=== PATIENT | male | born 1965 | race Two or more races ===

== ENCOUNTER 2017-02-04 15:48 | Inpatient (IN) | payer BC ==
--- NOTE | ~2017-02-04 | DS ---
Discharge Summary [facility] [address] [place]. [address] NAME: DINO EASON : 65 STATUS : DIS IN PAT#: [id number] AGE: 51 ADM/REG DATE : 02/04/17 MR#: [id number] REPORT SERV DATE: 02/19/17 DICTATED BY: CHAN RAE DATE: 02/19/17 REPORT STATUS : Draft TRANSCRIBED BY: TRI DATE: 02/19/17 Data Collection from hospitalization DISCHARGE DIAGNOSES: 1. ST-elevation myocardial infarction. 2. Chest pain. 3. Tobacco use. 4. Severe multivessel coronary artery disease. CONSULTATIONS: Dr. Drake Mejia. PROCEDURES: 1. Cardiac catheterization and percutaneous coronary intervention on 02/04/2017. 2. Emergent coronary artery bypass grafting x3b with VALDIVIA to the LAD, saphenous vein graft to the posterior descending artery, saphenous vein graft to the obtuse marginal, transesophageal echocardiogram, VasoView vein harvesting right lower extremity (left leg explored, but vein not removed) on 02/04/2017. DISCHARGE MEDICATIONS: Vitamin C 1000 mg twice a day, aspirin 81 mg daily, Lipitor 40 mg at bedtime, Pepcid 20 mg twice a day, [place] 10/325 one tablet every four hours as needed, Prinivil 2.5 mg daily, Lopressor 12.5 mg twice a day, Orazinc 220 mg daily. CONDITION AT DISCHARGE: Stable. DISPOSITION: The patient was discharged home to be followed by home health care on an 1800- calorie cardiac/diabetic diet with activities as instructed. He would follow up with me on 02/27/2017, he would follow up with Dr. Zeus Perez on 02/25/2017, he would follow up with Dr. Kelvin Wren on 02/13/2017. HOSPITAL COURSE: This is a 51-year-old man, who was transferred from [facility] with a diagnosis of acute coronary syndrome. He has had discomfort for two to three hours and his EKG reportedly demonstrated anterior ST-segment depression. He was sent to [facility] with no EKG from [facility]. On arrival he was seen by Dr. Drake Mejia. He had 1/10 discomfort. He said he was feeling much better. He had no orthopnea or PND. He had no palpitations and no chest discomfort prior to the day of this admission, it was felt that he would need to undergo a cardiac catheterization, and coronary angioplasty, with stent placement. He agreed to proceed. He was admitted to the hospital for further evaluation and treatment. Upon admission, he was taken to the cardiac lift slab operator where he underwent the above-mentioned procedure. He tolerated this well and there were no complications. The cardiac catheterization showed multivessel coronary artery disease. He said he had ongoing chest pain despite medical therapy. It was felt that the patient would need to undergo coronary artery bypass grafting. He was taken to the operating room where he underwent the above- mentioned procedure. He tolerated this well and there were no complications. On postop day #1, his lungs were clear. Left pleural and one mediastinal chest tubes were removed. He was in a normal sinus rhythm. He appeared comfortable. He had no edema. On 02/06/2017, he did have some mild discomfort. Chest tubes and pacing wires were removed. He was Discharge Summary [address] [address] NAME: DINO EASON : 65 STATUS : DIS IN PAT#: [id number] AGE: 51 ADM/REG DATE : 02/04/17 MR#: [id number] REPORT SERV DATE: 02/19/17 DICTATED BY: CHAN RAE DATE: 02/19/17 REPORT STATUS : Draft TRANSCRIBED BY: TRI DATE: 02/19/17 encouraged to mobilize. A Dulcolax suppository was given. We encouraged him to mobilize. He continued to do well and began to feel better. Discharge planning was performed. He was in a normal sinus rhythm. He was mobilizing in the hidalgo. On 02/08/2017, he had no chest pain or shortness of breath. His incisions were clean, dry, and intact. Discharge instructions were given. Due to his improved and stable condition, he was discharged home to be followed by home health care with the above-stated instructions. Information collected by: Diamond Zambrano I submit the above information as my discharge summary. BLANK/TRI Chan Rae M.D. / [id number] CC: Drake Mejia M.D.
--- NOTE | ~2017-02-04 | CN ---
Consultation Report [facility] [address] [place]. [address] NAME: DINO EASON : 65 STATUS : ADM IN [facility]#: [id number] AGE: 51 ADM/REG DATE : 02/04/17 MR#: [id number] REPORT SERV DATE: 02/04/17 DICTATED BY: CHAN RAE DATE: 02/04/17 REPORT STATUS : Draft TRANSCRIBED BY: MODL DATE: 02/04/17 CONSULT DATE OF CONSULTATION: 02/04/2017 REASON FOR REFERRAL: Evaluation for emergency coronary artery bypass grafting. HISTORY OF PRESENT ILLNESS: The patient is a 51-year-old Portuguese gentleman, who was transferred from [facility] with a diagnosis of acute coronary syndrome. He states his chest discomfort lasted for two to three hours prior to presentation. An EKG there demonstrated anterior ST-segment depressions and he was sent to [facility] for intervention. Dr. Drake Mejia took the patient for cardiac catheterization, which shows multivessel coronary artery disease. He states ongoing chest pain despite medical therapy, and therefore, we are consulted for emergency bypass surgery. PAST MEDICAL HISTORY: Unknown, as the patient does not speak adequate Algerian. He does have ongoing tobacco use. HOME MEDICATIONS: None. FAMILY HISTORY: No premature coronary artery disease. REVIEW OF SYSTEMS: Unknown due to the patient's language barrier. PHYSICAL EXAMINATION: VITAL SIGNS: His blood pressure is 130/70, heart rate is 70, he is afebrile, and vital signs are stable. HEENT: Normocephalic, atraumatic with no scleral icterus. NECK: Supple with no thyromegaly. CHEST: Clear to auscultation bilaterally. HEART: Regular rate and rhythm with no murmurs, rubs, or gallops. ABDOMEN: Soft, nontender, nondistended. EXTREMITIES: Warm with 1+ distal pulses. No clubbing, cyanosis, or edema. MUSCULOSKELETAL: Grossly intact. NEUROLOGIC: Grossly intact. LABORATORY DATA: Within normal limits. STUDIES: I reviewed his cardiac catheterization and agree with three-vessel coronary artery disease not amenable to percutaneous intervention. PLAN: He will be brought to the operating room for emergency multivessel coronary artery bypass grafting. Consultation Report [facility] [address] [place]. [address] NAME: DINO EASON : 65 STATUS : ADM IN PAT#: [id number] AGE: 51 ADM/REG DATE : 02/04/17 MR#: [id number] REPORT SERV DATE: 02/04/17 DICTATED BY: CHAN RAE DATE: 02/04/17 REPORT STATUS : Draft TRANSCRIBED BY: MODL DATE: 02/04/17 CCR/MOSESL Chan Rae M.D. / [id number] CC: Drake Mejia M.D.
--- NOTE | ~2017-02-04 | OP ---
Record Of Operation [facility] [address] [place]. [address] NAME: DINO EASON : 65 STATUS : ADM IN PAT#: [id number] AGE: 51 ADM/REG DATE : 02/04/17 MR#: [id number] REPORT SERV DATE: 02/05/17 DICTATED BY: CHAN RAE DATE: 02/04/17 REPORT STATUS : Draft TRANSCRIBED BY: MODL DATE: 02/04/17 DATE OF PROCEDURE: 02/04/2017 PREOPERATIVE DIAGNOSES: ST-elevation myocardial infarction, ongoing chest pain. POSTOPERATIVE DIAGNOSES: ST-elevation myocardial infarction, ongoing chest pain. PROCEDURE: 1. Emergency coronary artery bypass grafting x3 with a VALDIVIA to the LAD, saphenous vein graft to the posterior descending artery, saphenous vein graft to the obtuse marginal. 2. Transesophageal echocardiogram. 3. VasoView vein harvesting, right lower extremity (left leg explored but vein not removed). SURGEON: Chan Rae M.D. DIE FILER: Lukas Cedillo. ANESTHESIOLOGIST: Varinder Davis M.D. CARDIOPULMONARY BYPASS TIME: 72 minutes. CROSS-CLAMP TIME: 58 minutes. FINDINGS: Small but usable vein, second obtuse marginal was too small to graft, other targets good, normal ejection fraction, no valvular abnormalities. Wires are ventricular x2. Tubes were left pleural x1 and mediastinal x2. COMPLICATIONS: None. CONDITION: Fair to the ICU on no drips and normal sinus rhythm. PROCEDURE IN DETAIL: After cardiac catheterization, the patient was brought emergently to the operating room and lined by Anesthesia. He was prepped and draped in the normal fashion. A transesophageal echocardiogram showed normal ejection fraction with no valvular abnormalities. VasoView vein harvesting commenced on the right lower extremity by making an incision just medial to the right knee and dissection carried proximally and distally. All tributaries were coagulated. Counter incisions were made and the vein was removed. All tributaries were then clipped. The vein below the knee was small caliber, so the left leg was harvested, but not removed as it was smaller than the right. Median sternotomy was performed in the usual fashion. The left bev-sternum was elevated using a Rultract retractor and the left pleura taken down using Bovie electrocautery. The left internal mammary artery was harvested from the chest wall using Bovie electrocautery. All tributaries were clipped. After systemic heparinization, the distal limb was severed from the chest wall and good blood flow was noted. Papaverine was soaked on the vessel wall. Pericardium was opened in the midline and tacked to the skin using multiple silk sutures. Record Of Operation [facility] [address] [place]. [address] NAME: DINO EASON : 65 STATUS : ADM IN PAT#: [id number] AGE: 51 ADM/REG DATE : 02/04/17 MR#: [id number] REPORT SERV DATE: 02/05/17 DICTATED BY: CHAN RAE DATE: 02/04/17 REPORT STATUS : Draft TRANSCRIBED BY: TRI DATE: 02/04/17 Aortic cannulation was performed in the proximal aortic arch and venous cannulation was performed in the right atrial appendage. The patient was placed on cardiopulmonary bypass and cooled to approximately 35 degrees Celsius. A cardioplegia/vent cannula was placed in the ascending aorta. Cross-clamp was placed across the aorta and 800 mL of cold blood cardioplegia was given for cardiac standstill. The base of the heart was elevated and the posterior descending artery identified. This was dissected using a Castro blade and extended using Zamudio scissors. Saphenous vein was placed in a reverse manner, a lim created, and an end-to-side anastomosis was performed using a running 7-0 Deklene suture. Heart was filled and the vein sized to the ascending aorta around the right side of the heart. Antegrade cardioplegia was given. The lateral wall of the heart was inspected. The second obtuse marginal artery was too small to graft. The first obtuse marginal artery was then opened using a Castro blade and extended using Zamudio scissors. Remaining portion of the saphenous vein was placed in a reverse manner, a lim created, and an end-to-side anastomosis performed using a running 7-0 Deklene suture. Heart was filled and the vein sized to the ascending aorta around the left side of the heart. Antegrade cardioplegia was given. Mid to distal portion of the LAD artery was then dissected using a Castro blade and extended using Zamudio scissors. Distal end of the mammary artery was fashioned to a lim and end-to-side anastomosis was performed using a running 8-0 Deklene suture. Brennendog was released and excellent blood flow was noted distally. Fascia of the mammary was tacked down to the LV wall using two 6-0 Prolene sutures. Antegrade cardioplegia was given. An 11- blade knife was used to make two separate stab incisions on the ascending aorta and a 4.5 mm punch used to create two separate aortotomies. Two separate proximal anastomoses were performed using a running 6-0 Prolene suture for each. Heart was then filled and de-aired through the root vent. Cross-clamp was removed. Ventricular pacing wires were placed on the right ventricular surface. A left pleural and posterior pericardial chest tube were placed. After the patient achieved normothermia, he was weaned from cardiopulmonary bypass without difficulty. Doppler flow analysis was performed on all three tributaries and all three had excellent flow. Protamine was administered. The patient was decannulated. After surgical hemostasis was achieved, an anterior pericardial chest tube was placed and the sternum reapproximated using the sternal cable system. The skin, subcutaneous, and subcuticular tissue were closed over the sternum using running Vicryl and Monocryl sutures. Overall, the patient tolerated the procedure well and was transported to the ICU in fair condition on no drips in normal sinus rhythm. CCR/MODL Chan Rae M.D. / [id number] CC: Drake Mejia M.D. [facility]
--- NOTE | ~2017-02-04 | PRECARD ---
[facility]&P [facility] [address] [place]. [address] NAME: DINO EASON : 65 STATUS : ADM IN [facility]#: [id number] AGE: 51 ADM/REG DATE : 02/04/17 MR#: [id number] REPORT SERV DATE: 02/04/17 DICTATED BY: ROSALINO MEJIA DATE: 02/04/17 REPORT STATUS : Draft TRANSCRIBED BY: MODIglesia DATE: 02/04/17 DATE OF ADMISSION: 02/04/2017 HISTORY OF PRESENT ILLNESS: Mr. Dino Eason is a 51-year-old gentleman, transferred from [facility] with a diagnosis of acute coronary syndrome. Mr. Eason had chest discomfort for perhaps two to three hours. His EKG reportedly demonstrated anterior ST-segment depression. That EKG is not available. He was sent to [facility] with no EKG from [facility]. On arrival, he has 1/10 discomfort. He feels much better. He has no orthopnea or PND. No palpitations. No chest discomfort prior to today. PAST MEDICAL HISTORY: Ongoing tobacco use. MEDICINES: None. FAMILY HISTORY: No premature coronary artery disease. REVIEW OF SYSTEMS: A complete review of systems obtained, pertinent negative and remarkable, except as noted above and below, all systems addressed. PHYSICAL EXAMINATION: VITAL SIGNS: Blood pressure 130/70, heart rate about 70. LABORATORY DATA: White count 9.4, hematocrit is 43.1, platelet count is 240,000. BUN is 9, creatinine 0.7, potassium 3.5. ASSESSMENT: Mr. Eason is a 51-year-old gentleman, transferred from [facility] to [facility] by ambulance with reported acute coronary syndrome. We do not have the EKG that prompted this transfer, we are trying to obtain that now. We have asked the [facility] to fax it to us. I did talk to emergency room physician. We will proceed with cardiac catheterization and possible angioplasty. I discussed the risks, benefits, and alternatives of catheterization, coronary angioplasty with stent placement with Mr. Eason. He understands and agrees to proceed. THEODORA/TRI Rosalino Mejia M.D. / [id number] CC: Rosalino Mejia M.D. [facility] [address] [address] NAME: DINO EASON : 65 STATUS : ADM IN PAT#: [id number] AGE: 51 ADM/REG DATE : 02/04/17 MR#: [id number] REPORT SERV DATE: 02/04/17 DICTATED BY: ROSALINO MEJIA DATE: 02/04/17 REPORT STATUS : Draft TRANSCRIBED BY: TRI DATE: 02/04/17 UNKNOWN
[2017-02-04 18:18] LABS: BUN (BLOOD UREA NITROGEN) 8 MG/DL (6-23); CHLORIDE, SERUM 108 MMOL/L (96-112); CO2 (CARBON DIOXIDE) 24 MMOL/L (24-34); CREATININE 0.77 MG/DL (0.70-1.30); GFR AFRICAN AMERICAN 122 ML/MIN (>=60); GFR NON AFRICAN AMERICAN 105 ML/MIN (>=60); GLUCOSE, SERUM 92 MG/DL (60-99); POTASSIUM, SERUM 4.1 MMOL/L (3.5-5.3); SODIUM, SERUM 140 MMOL/L (135-148)
[2017-02-04 18:20] LABS: BASOPHILS 0.1 %; BASOPHILS ABSOLUTE 0.01 10/3/uL (0.0-0.16); EOSINOPHILS 0.4 %; EOSINOPHILS ABSOLUTE 0.04 10/3/uL (0.0-0.53); HEMATOCRIT 39.6 % (40.0-51.0); HEMOGLOBIN 13.5 g/dL (13.6-17.8); IMMATURE GRANULOCYTES 0.2 %; IMMATURE GRANULOCYTES ABSOLUTE 0.02 10/3/uL (0.0-0.11); LYMPHOCYTES 14.1 %; LYMPHOCYTES ABSOLUTE 1.38 10/3/uL (0.67-4.30); MEAN CORPUS HGB CONC 34.1 g/dL (32.0-36.0); MEAN CORPUSCULAR HEMOGLOB 31.4 pg (26.0-34.0); MEAN CORPUSCULAR VOLUME 92.1 fL (80-100); MEAN PLATELET VOLUME 9.5 fL (9.2-13.0); MONOCYTES ABSOLUTE 0.39 10/3/uL (0.21-1.20); NEUTROPHILS 81.2 %; NEUTROPHILS ABSOLUTE 7.98 10/3/uL (2.02-8.40); PLATELET COUNT 245 10/3/uL (150-400); RBC DISTRIBUTION WIDTH 13.8 % (12.0-16.0); WHITE BLOOD CELLS 9.8 10/3/uL (4.5-10.5)
[2017-02-04 18:23] LABS: MANUAL DIFF NO %
[2017-02-04 21:31] LABS: BE (BASE EXCESS) -2.1 MEQ/L (0 +/- 2.5); CARBOXYHEMOGLOBIN 0.1 % (0-3); HCO3 (ACTUAL BICARBONATE) 21.4 MEQ/L (23-27); HEMOBLOGIN CONTENT 11.2 G/DL (14-18); INSTRUMENT SERIAL # 11843; METHEMOGLOBIN 0.5 % (0-3); MODE SIMV; O2 CONTENT 16.8 VOL% (18-24); OPERATOR ID 13744; PCO2 (CO2 TENSION) 32 MMHG (35-45); PO2 (O2 TENSION) 458 MMHG (79-93); SAMPLE Arterial; TIDAL VOLUME 700 ML; pH 7.44 (7.37-7.43)
[2017-02-04 21:52] LABS: BASOPHILS 0.1 %; BASOPHILS ABSOLUTE 0.01 10/3/uL (0.0-0.16); EOSINOPHILS 1.1 %; EOSINOPHILS ABSOLUTE 0.14 10/3/uL (0.0-0.53); IMMATURE GRANULOCYTES 0.3 %; IMMATURE GRANULOCYTES ABSOLUTE 0.04 10/3/uL (0.0-0.11); LYMPHOCYTES 14.2 %; LYMPHOCYTES ABSOLUTE 1.74 10/3/uL (0.67-4.30); MEAN CORPUS HGB CONC 34.4 g/dL (32.0-36.0); MEAN CORPUSCULAR HEMOGLOB 31.6 pg (26.0-34.0); MEAN CORPUSCULAR VOLUME 91.8 fL (80-100); MEAN PLATELET VOLUME 8.7 fL (9.2-13.0); MONOCYTES 1.5 %; MONOCYTES ABSOLUTE 0.19 10/3/uL (0.21-1.20); NEUTROPHILS 82.8 %; NEUTROPHILS ABSOLUTE 10.17 10/3/uL (2.02-8.40); PLATELET COUNT 190 10/3/uL (150-400); RBC DISTRIBUTION WIDTH 13.7 % (12.0-16.0); WHITE BLOOD CELLS 12.3 10/3/uL (4.5-10.5)
[2017-02-04 21:53] LABS: HEMATOCRIT 30.2 % (40.0-51.0); HEMOGLOBIN 10.4 g/dL (13.6-17.8); MANUAL DIFF NO %; RED CELL COUNT 3.29 10/6/uL (4.7-6.1)
[2017-02-04 22:04] LABS: INTERNATIONAL NORMAL RATI 1.5 UNITS (-); PARTIAL THROMBO TIME 39.1 SEC (22.5-37.2); PROTIME (NOT ORD) 17.5 SEC (12.0-14.5)
[2017-02-04 22:07] LABS: BUN (BLOOD UREA NITROGEN) 7 MG/DL (6-23); CALCIUM, SERUM 8.5 MG/DL (8.5-10.4); CHLORIDE, SERUM 110 MMOL/L (96-112); CO2 (CARBON DIOXIDE) 24 MMOL/L (24-34); CREATININE 0.81 MG/DL (0.70-1.30); GFR AFRICAN AMERICAN 119 ML/MIN (>=60); GFR NON AFRICAN AMERICAN 103 ML/MIN (>=60); GLUCOSE, SERUM 110 MG/DL (60-99); POTASSIUM, SERUM 4.4 MMOL/L (3.5-5.3); SODIUM, SERUM 143 MMOL/L (135-148)
[2017-02-05 00:06] LABS: HEMATOCRIT 35.4 % (40.0-51.0); HEMOGLOBIN 12.2 g/dL (13.6-17.8)
[2017-02-05 00:20] LABS: POTASSIUM, SERUM 4.3 MMOL/L (3.5-5.3)
[2017-02-05 01:46] LABS: BE (BASE EXCESS) -2.7 MEQ/L (0 +/- 2.5); CARBOXYHEMOGLOBIN 0.1 % (0-3); DEVICE NC; HEMOBLOGIN CONTENT 12.5 G/DL (14-18); INSTRUMENT SERIAL # 11843; METHEMOGLOBIN 0.5 % (0-3); O2 CONTENT 17.3 VOL% (18-24); OPERATOR ID 13744; PCO2 (CO2 TENSION) 38 MMHG (35-45); PO2 (O2 TENSION) 133 MMHG (79-93); SAMPLE Arterial; pH 7.38 (7.37-7.43)
[2017-02-05 03:20] LABS: BASOPHILS 0.1 %; BASOPHILS ABSOLUTE 0.01 10/3/uL (0.0-0.16); EOSINOPHILS 0.4 %; EOSINOPHILS ABSOLUTE 0.06 10/3/uL (0.0-0.53); HEMATOCRIT 34.3 % (40.0-51.0); HEMOGLOBIN 11.5 g/dL (13.6-17.8); IMMATURE GRANULOCYTES 0.4 %; IMMATURE GRANULOCYTES ABSOLUTE 0.06 10/3/uL (0.0-0.11); LYMPHOCYTES 7.3 %; LYMPHOCYTES ABSOLUTE 1.08 10/3/uL (0.67-4.30); MEAN CORPUS HGB CONC 33.5 g/dL (32.0-36.0); MEAN CORPUSCULAR HEMOGLOB 31.3 pg (26.0-34.0); MEAN CORPUSCULAR VOLUME 93.2 fL (80-100); MEAN PLATELET VOLUME 9.1 fL (9.2-13.0); MONOCYTES 5.3 %; MONOCYTES ABSOLUTE 0.79 10/3/uL (0.21-1.20); NEUTROPHILS 86.5 %; NEUTROPHILS ABSOLUTE 12.85 10/3/uL (2.02-8.40); PLATELET COUNT 169 10/3/uL (150-400); RBC DISTRIBUTION WIDTH 13.7 % (12.0-16.0); RED CELL COUNT 3.68 10/6/uL (4.7-6.1); WHITE BLOOD CELLS 14.9 10/3/uL (4.5-10.5)
[2017-02-05 03:23] LABS: MANUAL DIFF NO %
[2017-02-05 03:33] LABS: BUN (BLOOD UREA NITROGEN) 8 MG/DL (6-23); CALCIUM, SERUM 7.6 MG/DL (8.5-10.4); CHLORIDE, SERUM 116 MMOL/L (96-112); CO2 (CARBON DIOXIDE) 24 MMOL/L (24-34); CREATININE 0.92 MG/DL (0.70-1.30); GFR AFRICAN AMERICAN 111 ML/MIN (>=60); GFR NON AFRICAN AMERICAN 96 ML/MIN (>=60); GLUCOSE, SERUM 88 MG/DL (60-99); POTASSIUM, SERUM 3.8 MMOL/L (3.5-5.3); SODIUM, SERUM 147 MMOL/L (135-148)
[2017-02-05] MEDS ORDERED: [UNRECOGNIZED DRUG - OTHER] PO (12:14)
[2017-02-05 16:20] LABS: HEMOGLOBIN 10.4 g/dL (13.6-17.8)
[2017-02-05 16:21] LABS: HEMATOCRIT 30.3 % (40.0-51.0)
[2017-02-05 16:30] LABS: POTASSIUM, SERUM 3.6 MMOL/L (3.5-5.3)
[2017-02-06 04:59] LABS: BASOPHILS 0 %; EOSINOPHILS 0.1 %; EOSINOPHILS ABSOLUTE 0.01 10/3/uL (0.0-0.53); HEMATOCRIT 30.2 % (40.0-51.0); HEMOGLOBIN 10.2 g/dL (13.6-17.8); IMMATURE GRANULOCYTES 0.2 %; IMMATURE GRANULOCYTES ABSOLUTE 0.02 10/3/uL (0.0-0.11); LYMPHOCYTES 12.8 %; LYMPHOCYTES ABSOLUTE 1.26 10/3/uL (0.67-4.30); MEAN CORPUS HGB CONC 33.8 g/dL (32.0-36.0); MEAN CORPUSCULAR HEMOGLOB 31.7 pg (26.0-34.0); MEAN CORPUSCULAR VOLUME 93.8 fL (80-100); MEAN PLATELET VOLUME 9.2 fL (9.2-13.0); MONOCYTES 8.1 %; MONOCYTES ABSOLUTE 0.79 10/3/uL (0.21-1.20); NEUTROPHILS 78.8 %; NEUTROPHILS ABSOLUTE 7.73 10/3/uL (2.02-8.40); PLATELET COUNT 151 10/3/uL (150-400); RBC DISTRIBUTION WIDTH 14.1 % (12.0-16.0); RED CELL COUNT 3.22 10/6/uL (4.7-6.1); WHITE BLOOD CELLS 9.8 10/3/uL (4.5-10.5)
[2017-02-06 05:00] LABS: MANUAL DIFF NO %
[2017-02-06 05:16] LABS: BUN (BLOOD UREA NITROGEN) 10 MG/DL (6-23); CALCIUM, SERUM 8.5 MG/DL (8.5-10.4); CHLORIDE, SERUM 111 MMOL/L (96-112); CO2 (CARBON DIOXIDE) 20 MMOL/L (24-34); CREATININE 0.67 MG/DL (0.70-1.30); GFR AFRICAN AMERICAN 129 ML/MIN (>=60); GFR NON AFRICAN AMERICAN 111 ML/MIN (>=60); GLUCOSE, SERUM 103 MG/DL (60-99); POTASSIUM, SERUM 3.6 MMOL/L (3.5-5.3); SODIUM, SERUM 142 MMOL/L (135-148)
[2017-02-07 04:26] LABS: BASOPHILS 0.1 %; BASOPHILS ABSOLUTE 0.01 10/3/uL (0.0-0.16); EOSINOPHILS 0.2 %; EOSINOPHILS ABSOLUTE 0.02 10/3/uL (0.0-0.53); HEMATOCRIT 32.9 % (40.0-51.0); HEMOGLOBIN 11.2 g/dL (13.6-17.8); IMMATURE GRANULOCYTES 0.3 %; IMMATURE GRANULOCYTES ABSOLUTE 0.03 10/3/uL (0.0-0.11); LYMPHOCYTES 15.2 %; MEAN CORPUSCULAR HEMOGLOB 31.6 pg (26.0-34.0); MEAN CORPUSCULAR VOLUME 92.9 fL (80-100); MEAN PLATELET VOLUME 9.6 fL (9.2-13.0); MONOCYTES 9.1 %; MONOCYTES ABSOLUTE 0.96 10/3/uL (0.21-1.20); NEUTROPHILS 75.1 %; NEUTROPHILS ABSOLUTE 7.89 10/3/uL (2.02-8.40); PLATELET COUNT 170 10/3/uL (150-400); RBC DISTRIBUTION WIDTH 13.8 % (12.0-16.0); RED CELL COUNT 3.54 10/6/uL (4.7-6.1); WHITE BLOOD CELLS 10.5 10/3/uL (4.5-10.5)
[2017-02-07 04:30] LABS: MANUAL DIFF NO %
[2017-02-07 04:34] LABS: BUN (BLOOD UREA NITROGEN) 11 MG/DL (6-23); CALCIUM, SERUM 8.7 MG/DL (8.5-10.4); CHLORIDE, SERUM 106 MMOL/L (96-112); CO2 (CARBON DIOXIDE) 24 MMOL/L (24-34); CREATININE 0.83 MG/DL (0.70-1.30); GFR AFRICAN AMERICAN 118 ML/MIN (>=60); GFR NON AFRICAN AMERICAN 102 ML/MIN (>=60); GLUCOSE, SERUM 119 MG/DL (60-99); POTASSIUM, SERUM 3.9 MMOL/L (3.5-5.3); SODIUM, SERUM 139 MMOL/L (135-148)
[2017-02-08 06:05] LABS: BASOPHILS 0.1 %; BASOPHILS ABSOLUTE 0.01 10/3/uL (0.0-0.16); EOSINOPHILS 1.5 %; EOSINOPHILS ABSOLUTE 0.12 10/3/uL (0.0-0.53); HEMATOCRIT 30.9 % (40.0-51.0); HEMOGLOBIN 10.8 g/dL (13.6-17.8); IMMATURE GRANULOCYTES 0.3 %; IMMATURE GRANULOCYTES ABSOLUTE 0.02 10/3/uL (0.0-0.11); LYMPHOCYTES 19.1 %; LYMPHOCYTES ABSOLUTE 1.49 10/3/uL (0.67-4.30); MANUAL DIFF NO %; MEAN CORPUSCULAR VOLUME 91.7 fL (80-100); MEAN PLATELET VOLUME 9.4 fL (9.2-13.0); MONOCYTES 10.5 %; MONOCYTES ABSOLUTE 0.82 10/3/uL (0.21-1.20); NEUTROPHILS 68.5 %; NEUTROPHILS ABSOLUTE 5.36 10/3/uL (2.02-8.40); PLATELET COUNT 193 10/3/uL (150-400); RBC DISTRIBUTION WIDTH 13.9 % (12.0-16.0); RED CELL COUNT 3.37 10/6/uL (4.7-6.1); WHITE BLOOD CELLS 7.8 10/3/uL (4.5-10.5)
[2017-02-08 06:06] LABS: BUN (BLOOD UREA NITROGEN) 10 MG/DL (6-23); CHLORIDE, SERUM 109 MMOL/L (96-112); CO2 (CARBON DIOXIDE) 23 MMOL/L (24-34); CREATININE 0.66 MG/DL (0.70-1.30); GFR AFRICAN AMERICAN 130 ML/MIN (>=60); GFR NON AFRICAN AMERICAN 112 ML/MIN (>=60); GLUCOSE, SERUM 99 MG/DL (60-99); POTASSIUM, SERUM 3.6 MMOL/L (3.5-5.3); SODIUM, SERUM 141 MMOL/L (135-148)
[2017-02-08 11:38] LABS: BUN (BLOOD UREA NITROGEN) 9 MG/DL (6-23); CALCIUM, SERUM 8.3 MG/DL (8.5-10.4); CHLORIDE, SERUM 108 MMOL/L (96-112); CO2 (CARBON DIOXIDE) 27 MMOL/L (24-34); CREATININE 0.78 MG/DL (0.70-1.30); GFR AFRICAN AMERICAN 121 ML/MIN (>=60); GFR NON AFRICAN AMERICAN 105 ML/MIN (>=60); GLUCOSE, SERUM 105 MG/DL (60-99); POTASSIUM, SERUM 4.2 MMOL/L (3.5-5.3); SODIUM, SERUM 141 MMOL/L (135-148)
[2017-02-08] MEDS ORDERED: VITC500 PO (17:43)
[2017-02-08] MEDS ORDERED: PEP20 PO (17:44)
[2017-02-08] MEDS ORDERED: PRIN2.5 PO (17:44)
[2017-02-08] MEDS ORDERED: ASAB PO (17:44)
[2017-02-08] MEDS ORDERED: LIPITOR40 PO (17:44)
[2017-02-08] MEDS ORDERED: LOP25 PO (17:45)
[2017-02-08] MEDS ORDERED: ZINC220C PO (17:46)
[2017-02-08] MEDS ORDERED: NORCO1 TAB PO (17:47)
== END 2017-02-08 18:36 | disposition home health service (06) | DRG 234 ==
LOC: SSU2 15:48 → CVICU 18:11 → 5NO 02-06 15:16
PROVIDERS: Anesthesiology; Internal Medicine Cardiovascular Disease; Thoracic Surgery (Cardiothoracic Vascular Surgery)
PROC: 0210099 Bypass Coronary Artery, One Artery from Left Internal Mammary with Autologous Venous Tissue, Open Approach (ICD-10-PCS; 2017-02-04)
PROC: B2111ZZ Fluoroscopy of Multiple Coronary Arteries using Low Osmolar Contrast (ICD-10-PCS; 2017-02-04)
PROC: B2151ZZ Fluoroscopy of Left Heart using Low Osmolar Contrast (ICD-10-PCS; 2017-02-04)
PROC: 5A1221Z Performance of Cardiac Output, Continuous (ICD-10-PCS; 2017-02-04)
PROC: B246ZZ4 Ultrasonography of Right and Left Heart, Transesophageal (ICD-10-PCS; 2017-02-04)
PROC: 4A023N7 Measurement of Cardiac Sampling and Pressure, Left Heart, Percutaneous Approach (ICD-10-PCS; principal; 2017-02-04 17:45)
PROC: 021109W Bypass Coronary Artery, Two Arteries from Aorta with Autologous Venous Tissue, Open Approach (ICD-10-PCS; 2017-02-04 17:45)
DX: I21.3 ST elevation (STEMI) myocardial infarction of unspecified site (principal); F17.210 Nicotine dependence, cigarettes, uncomplicated; I25.10 Atherosclerotic heart disease of native coronary artery without angina pectoris
CPT/HCPCS: 31720; 36415; 71010; 71020; 80048; 82330; 82803; 82805; 82947; 82962; 83036; 83735; 84132; 84295; 85014; 85018; 85025; 85347; 85610; 85730; 86850; 86900; 86901; 86920; 87641; 93005; 93312; 93320; 93325; 93459; 94002; 94640; 94660; 94770; 99152; 99153; A9270-GY; C1760; C1769; C1894; C1898; J0330; J0583; J0690; J1644; J2150; J2250; J2370; J2440; J2720; J3010; J3370; J3475; J3480; P9045; P9047; Q9967